=== PATIENT | female | born 1995 | race Caucasian/White ===

== ENCOUNTER 2017-04-24 11:08 | Emergency (ER) | payer MEDICAID ==
[~2017-04-24] VITALS: Ht 170.2 cm; Wt 70.3 kg
[~2017-04-24 11:08] MED LIST: NAPROSYN500 M1 PO; NOMEDS XX
--- NOTE | 2017-04-24 11:33 | Emergency Room Report ---
History of Present Illness Time Seen by [id number] Presenting Problem in Triage Pt arrived:Walked Presenting Problem:HIT IN TOP OF HEAD WITH TREE BRANCH; NO LOC Onset of symptoms date/time:04/24/1711/09/1044 or onset unknown for: Treatment Prior to Arrival: RECRUITMENT ASSISTANT Provided by: Sepsis Risk Assessment: Temp: 98.6 B/P: 125/70 MAP: 88 Pulse: 99 Resp: 18 Recent fever? N Clinical Suspician of Infection? N Mental Status: 1 - Regular (Normal Baseline) Sepsis Risk:Low Sepsis Risk Have you (or family members/close friends) recently traveled outside the [place]? N If Yes, where/when: Have you had exposure to infectious disease within the past month? TB? Other? Specify: Patient pulled down on a branch today and it sprung up and struck her on the top of the head; she sustained an abrasion but neg LOC, neg vomiting, neg diplopia, neg neurological sx, neg neck pain. ALLERGIES Coded Allergies: No Known Allergies (04/24/17) Home Medications Reported Medications No Home Medications (NO HOME MEDICATIONS) 1 EACH XX ONCE History Medical History General CAD? No Angina: No [place]: No Hypertension? No Hyperlipidemia? No CHF? No DVT? No PE? No COPD? No Asthma? No Anemia? No GERD? No Gastric ulcers? No GI Bleed? No Hernia? No Thyroid Problems? No Hypothyroidism? No CVA? No Seizures? No Diabetes? No Insulin Dependent: No Insulin Pump: No Home FSBS? No Renal Insuffiency? No End Stage Renal Disease? No UTI? Yes Stones? No BPH? No GB Disease: No Nephritic Syndrome? No Asplenia? No Hepatitis? No Sickle Cell Disease? No Arthritis? No Migraines? No Cataracts? No Glaucoma? No MRSA? No HIV? No TB? No Anxiety? No Depression? No Cancer? No More? 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 Hx LMP N/A Family History Family Hx Diabetes No Hypertension No Cancer Yes TB No Social History Smoking Hx Smoker: Current Every Day Smoker Tobacco: Yes Type Cigarettes Packs/day < 1 Pack Alcohol Alcohol: No Review of Systems All Other Systems Reviewed and Negative Skin see HPI Physical Exam Vital Signs Vital Signs Date Time Temp Pulse Resp B/P Pulse O2 O2 Flow FiO2 Ox Delivery Rate 08/02 1116 98.6 99 18 125/70 99 General Appearance normal appearance, WD/WN, no apparent distress Eye Exam - bilateral eye normal exam, bilateral eye PERRL, bilateral eye EOMI (no diplopia no hyphema) Ear, Nose, Throat hearing grossly normal (abrasion scalp minor;no deform), no drainage or trauma to face Neck normal inspection, non-tender, supple, full range of motion Respiratory Status No: respiratory distress. 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 No Departure Departure Time of Disposition 1131 Disposition DC Home or Self Care(routine) Clinical Impression Primary Impression: Abrasion of scalp Qualifiers: Encounter type: initial encounter Qualified Code: S00.01XA - Abrasion of scalp, initial encounter Condition STABLE Patient Instructions DI for Abrasion Additional Instructions Tylenol, ice packs, see doctor of choice on list provided, one day, for recheck Discharge Counseling Counseled pt/family regarding diagnosis, medications/RX, home care, follow up needs, head instructions given verbally with family present ED Critical Care Critical Care No at 1132
--- NOTE | 2017-04-24 11:33 | Emergency Room Report ---
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 N Clinical Suspician of Infection? N Mental Status: 1 - Regular (Normal Baseline) Sepsis Risk:Low Sepsis Risk Have you (or family members/close friends) recently traveled outside the [place]? N If Yes, where/when: Have you had exposure to infectious disease within the past month? TB? Other? Specify: Patient pulled down on a branch today and it sprung up and struck her on the top of the head; she sustained an abrasion but neg LOC, neg vomiting, neg diplopia, neg neurological sx, neg neck pain. ALLERGIES Coded Allergies: No Known Allergies (04/24/17) Home Medications Reported Medications No Home Medications (NO HOME MEDICATIONS) 1 EACH XX ONCE History Medical History General CAD? No Angina: No [place]: No Hypertension? No Hyperlipidemia? No CHF? No DVT? No PE? No COPD? No Asthma? No Anemia? No GERD? No Gastric ulcers? No GI Bleed? No Hernia? No Thyroid Problems? No Hypothyroidism? No CVA? No Seizures? No Diabetes? No Insulin Dependent: No Insulin Pump: No Home FSBS? No Renal Insuffiency? No End Stage Renal Disease? No UTI? Yes Stones? No BPH? No GB Disease: No Nephritic Syndrome? No Asplenia? No Hepatitis? No Sickle Cell Disease? No Arthritis? No Migraines? No Cataracts? No Glaucoma? No MRSA? No HIV? No TB? No Anxiety? No Depression? No Cancer? No More? 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 Family History Family Hx Diabetes No Hypertension No Cancer Yes TB No Social History Smoking Hx Smoker: Current Every Day Smoker Tobacco: Yes Type Cigarettes Packs/day < 1 Pack Alcohol Alcohol: No Review of Systems All Other Systems Reviewed and Negative Skin see HPI Physical Exam Vital Signs Vital Signs Date Time Temp Pulse Resp B/P Pulse O2 O2 Flow FiO2 Ox Delivery Rate 08/02 1116 98.6 99 18 125/70 99 General Appearance normal appearance, WD/WN, no apparent distress Eye Exam - bilateral eye normal exam, bilateral eye PERRL, bilateral eye EOMI (no diplopia no hyphema) Ear, Nose, Throat hearing grossly normal (abrasion scalp minor;no deform), no drainage or trauma to face Neck normal inspection, non-tender, supple, full range of motion Respiratory Status No: respiratory distress. 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 No Departure Departure Time of Disposition 1131 Disposition DC Home or Self Care(routine) Clinical Impression Primary Impression: Abrasion of scalp Qualifiers: Encounter type: initial encounter Qualified Code: S00.01XA - Abrasion of scalp, initial encounter Condition STABLE Patient Instructions DI for Abrasion Additional Instructions Tylenol, ice packs, see doctor of choice on list provided, one day, for recheck Discharge Counseling Counseled pt/family regarding diagnosis, medications/RX, home care, follow up needs, head instructions given verbally with family present ED Critical Care Critical Care No at 1132
[2017-04-24 11:47] VITALS: BP 121/75
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
--- OUTSIDE RECORDS SUMMARY | 2017-04-26 19:53 | External Medical Summary Rpt ---
Demographics Preferred Language Croatian Marital Status Unknown Mormon Affiliation Unknown Race Unknown Ethnic Group Unknown Author Author , DMITRI ADAMS Address Unknown Phone Immunization Unable to retrieve immunization data due to connection failure with Immunization Registry. Please try again later.
--- OUTSIDE RECORDS SUMMARY | 2017-04-26 19:53 | External Medical Summary Rpt ---
Demographics Preferred Language Montenegrin Marital Status Unknown Sikhism Affiliation Unknown Race Unknown Ethnic Group Unknown Author Author , DMITRI ADAMS Address Unknown Phone Immunization Unable to retrieve immunization data due to connection failure with Immunization Registry. Please try again later.
== END 2017-04-24 11:47 | disposition home or self-care (01) ==
LOC: ER 11:08
DX: S00.01XA Abrasion of scalp, initial encounter (principal); W22.8XXA Striking against or struck by other objects, initial encounter